=== PATIENT | female | born 1960 | race Caucasian/White ===

== ENCOUNTER 2019-09-11 10:07 | Outpatient (CLI) | payer OTHER ==
[~2019-09-11] VITALS: Ht 157.5 cm; Wt 78.3 kg
[2019-09-11 10:54] VITALS: BP 112/70
[2019-09-11] MEDS ORDERED: GLUC100016 PO (11:08)
[2019-09-11] MEDS ORDERED: CYCL10TA9 PO (11:08)
[2019-09-11] MEDS ORDERED: LISI1TAB8 PO (11:08)
[2019-09-11] MEDS ORDERED: PREG75CA PO (11:08)
[2019-09-11] MEDS ORDERED: OXYC-471 PO (11:08)
[2019-09-11] MEDS ORDERED: ATOR40TA70 PO (11:08)
[2019-09-11] MEDS ORDERED: PANC1CAP PO (11:08)
[2019-09-11] MEDS ORDERED: FAMO-144 PO (11:08)
[2019-09-11 11:30] LABS: BASOPHILS % (AUTO) 0 % (0-10); EOSINOPHILS # (AUTO) 0.3 10^3/uL (0.0-0.3); EOSINOPHILS % (AUTO) 3 % (0-10); HEMATOCRIT 41 % (35-52); HEMOGLOBIN 13.7 G/DL (11.5-16.0); LYMPHOCYTES # (AUTO) 2.9 X 10^3 (1.0-4.0); LYMPHOCYTES % (AUTO) 31 % (12-44); MEAN CORPUSCULAR HEMOGLOBIN 32 PG (25-34); MEAN CORPUSCULAR HGB CONC 34 G/DL (32-36); MEAN CORPUSCULAR VOLUME 96 FL (80-99); MEAN PLATELET VOLUME 10.4 FL (7.4-10.4); MONOCYTES # (AUTO) 0.6 X 10^3 (0.0-1.0); MONOCYTES % (AUTO) 6 % (0-12); NEUTROPHILS # (AUTO) 5.5 X 10^3 (1.8-7.8); NEUTROPHILS % (AUTO) 59 % (42-75); PLATELET COUNT 315 10^3/uL (130-400); RED CELL DISTRIBUTION WIDTH 13.8 % (10.0-14.5); WHITE BLOOD COUNT 9.3 10^3/uL (4.3-11.0)
[2019-09-11 11:40] LABS: BUN/CREATININE RATIO 20; CALCIUM 9.8 MG/DL (8.5-10.1); CARBON DIOXIDE 23 MMOL/L (21-32); CHLORIDE 106 MMOL/L (98-107); CREATININE SERUM 0.86 MG/DL (0.60-1.30); GFR ESTIMATED > 60; GLUCOSE 100 MG/DL (70-105); POTASSIUM 3.6 MMOL/L (3.6-5.0); SODIUM 140 MMOL/L (135-145)
== END 2019-09-11 10:50 | disposition home or self-care (01) ==
LOC: PREOP 10:07
PROVIDERS: ATTEND Orthopaedic Surgery
DX: Z01.812 Encounter for preprocedural laboratory examination (principal); M48.00 Spinal stenosis, site unspecified
CPT/HCPCS: 36415; 80048; 85025; 86850; 86900; 86901; 87081

== ENCOUNTER 2019-09-18 06:11 | Inpatient (IN) | payer OTHER ==
--- NOTE | 2019-09-11 14:57 | NUR ---
MEDICATION LIST WAS ENTERED BY PREOP. I CALLED [facility] IN [place] TO VERIFY PRESCRIPTIONS RECENTLY FILLED THERE. [facility] FILLED: 08-23-19 LISINOPRIL HCTZ 20-12.5MG 2 DAILY #60 08-23-19 LIPITOR 40MG DAILY #30 08-23-19 PERCOCET 5-325MG Q6H PRN #30 08-03-19 FLEXERIL 10MG TID PRN #30 07-03-19 LYRICA 75MG BID PRN #30 ALSO REPORTED OTC: PEPCID DAILY GLUCOSAMINE DAILY SUPER ENZYME DAILY I DID NOT FIND ANY DISCREPANCIES IN THE PRESCRIPTIONS MEDICATION SO I DID NOT CALL AND RE INTERVIEW THE PATIENT AT THIS TIME.
[~2019-09-18] VITALS: Ht 157 cm; Wt 78.3 kg
[2019-09-18] VITALS (12 sets, daily range): BP systolic 88–120; BP diastolic 48–82
[~2019-09-18 06:11] MED LIST: ATOR40TA70 PO; CYCL10TA9 PO; FAMO-144 PO; GLUC100016 PO; LISI1TAB8 PO; OXYC-471 PO; PANC1CAP PO; PREG75CA PO
[2019-09-18] MEDS ORDERED: ceFAZolin 2 GM IV Premixed 50 ML IV ONE (06:30)
[2019-09-18] MEDS ORDERED: ROCURONIUM 10 MG/ML 5 ML SYRINGE IV ONE ×2 (07:11→10:37)
[2019-09-18] MEDS ORDERED: MIDAZOLAM 2 MG/2 ML (VERSED) VIAL ONE (07:11)
[2019-09-18] MEDS ORDERED: LIDOCAINE PF 2% 5 ML (XYLOCAINE) VIAL ONE (07:11)
[2019-09-18] MEDS ORDERED: fentaNYL INJECTION 250 MCG/5 ML AMP ONE (07:12)
[2019-09-18] MEDS ORDERED: VANCOMYCIN 1000 MG/VIAL ONE (07:22)
[2019-09-18] MEDS ORDERED: NEO/POLY/BAC (NEOSPORIN) OINT 15 GM TUBE ONE (07:23)
[2019-09-18] MEDS ORDERED: BUP/EPI 0.5% 1:200,000 (SENSORCAINE) 30 ML VIAL ONE (07:23)
[2019-09-18] MEDS ORDERED: ceFAZolin 2 GM IV Premixed 50 ML ONE (07:29)
[2019-09-18] MEDS: LACTATED RINGERS 1,000 ML IV PRN ×5 (07:40→16:52)
[2019-09-18] MEDS ORDERED: BACITRACIN 100,000 UNIT/NS 1000 ML POUR BOTTLE IR ONE ×2 (07:45)
[2019-09-18] MEDS ORDERED: PHENYLEPHRINE 100 MCG/ML 10 ML (ANESTHESIA) SYR ONE (10:37)
[2019-09-18] MEDS ORDERED: GLYCOPYRROLATE 0.2 MG/ML (ROBINUL) 2 ML VIAL ONE (10:37)
[2019-09-18] MEDS ORDERED: SEVOFLURANE (ULTANE) 15 ML INHAL SOLN ONE ×4 (10:37→11:20)
[2019-09-18] MEDS ORDERED: NEOSTIGMINE 3 MG/3 ML VIAL ONE (10:37)
[2019-09-18] MEDS ORDERED: proPOfol 200 MG/20 ML (DIPRIVAN) VIAL IV ONE (10:45)
[2019-09-18] MEDS ORDERED: DEXAMETHASONE 10 MG/ML (DECADRON) 1 ML VIAL ONE (10:45)
[2019-09-18] MEDS ORDERED: HYDROmorphone 2 MG/ML VIAL (DILAUDID) IV ONE (11:45)
[2019-09-18] MEDS ORDERED: morphine INJ 10 MG/ML 1ML (SYR OR VIAL) IVP ONE (11:45)
[2019-09-18] MEDS ORDERED: ONDANSETRON 4 MG/2 ML (SDV) Z0FRAN IVP PRN (11:45)
[2019-09-18] MEDS ORDERED: morphine INJ 10 MG/ML 1ML (SYR OR VIAL) ONE (11:46)
[2019-09-18] MEDS ORDERED: SUCCINYLCHOLINE INJ 100 MG/5 ML SYR ONE (11:49)
[2019-09-18] MEDS ORDERED: BISACODYL 5 MG (DULCOLAX) TABLET PO PRN (12:15)
[2019-09-18] MEDS ORDERED: BISACODYL 10 MG SUPP (DULCOLAX) PR PRN (12:15)
[2019-09-18] MEDS ORDERED: METOCLOPRAMIDE INJ 10 MG/2 ML (REGLAN) IV PRN (12:15)
[2019-09-18] MEDS ORDERED: PROMETHAZINE 25 MG (PHENERGAN) TAB PO PRN (12:15)
[2019-09-18] MEDS ORDERED: ONDANSETRON 4 MG/2 ML (SDV) Z0FRAN IV PRN (12:15)
[2019-09-18] MEDS ORDERED: METOCLOPRAMIDE 10 MG (REGLAN) TAB PO PRN (12:15)
[2019-09-18] MEDS ORDERED: ACETAMINOPHEN 325 MG TABLET PO PRN (12:15)
[2019-09-18] MEDS: CYCLOBENZAPRINE 10 MG (FLEXERIL) TAB PO PRN (13:08)
--- NOTE | 2019-09-18 13:53 | Diagnostic Imaging Report ---
Indication: Back pain IMPRESSION: 75 seconds of fluoroscopy was used by Dr. Young in surgery during a spinal fusion procedure. 5 digital images were also obtained for alignment and localization purposes. Dictated by: Dictated on workstation # [id number]
[2019-09-18] MEDS: fentaNYL INJECTION 100 MCG/2 ML AMP IVP PRN ×3 (14:10→20:25)
[2019-09-18] MEDS: ceFAZolin INJECTION 1,000 MG in WATER (STERILE) FOR INJECTION 10 ML IV SCH (16:52)
--- NOTE | 2019-09-18 17:35 | OPERATIVE REPORT ---
DATE OF SERVICE: 09/18/2019 SURGEON: Cleveland Young DO UTILITIES EQUIPMENT REPAIRER: SAEID Ray This is a medically necessary procedure. Fish Machine Feeder was necessary for retraction of vital neurovascular structures. Without an hotel assistant general manager, the procedure would not be possible. PREOPERATIVE DIAGNOSES: 1. Lumbar herniated nucleus pulposus, left side L4-L5. 2. Lumbar spinal stenosis (bony, central, foraminal). 3. Burst fracture of T12. 4. Osteoporosis. POSTOPERATIVE DIAGNOSES: 1. Lumbar herniated nucleus pulposus, left side L4-L5. 2. Lumbar spinal stenosis (bony, central, foraminal). 3. Burst fracture of T12. 4. Osteoporosis. PROCEDURE PERFORMED: 1. T10-T11, L1-L2 posterior instrumentation. 2. T10-T11, T11-T12, T12-L1, L1-L2 posterior lumbar fusion. 3. Bilateral laminectomy with complete facetectomies T12-L1. 4. Use of human allograft for spine. 5. Use of local bone autograft. 6. Left L4-L5 hemilaminotomy. 7. Excision of HNP. COMPLICATIONS: None. SPECIMEN SENT: None. DRAINS PLACED: Subfascial Hemovac. ANESTHESIA: General endotracheal tube anesthesia with local anesthetic. ESTIMATED BLOOD LOSS: See anesthesia records. SPECIMEN SENT: None. HISTORY OF PRESENT ILLNESS: The patient is a very pleasant 58-year-old female who presented to me with severe vertebra plana deformity of T12. This had retropulsion with subsequent spinal stenosis and thoracic kyphosis at this level. She also had left-sided herniated nucleus pulposus at L4-L5. In addition to her extreme back pain associated with the fracture, she had radiating lower extremity pain. Based on these MRI findings, I did offer her surgery and we chose to address both issues under one anesthesia. She understood the risks and benefits. DESCRIPTION OF PROCEDURE: The patient was identified by name on wrist band in the preoperative holding area. Her operative site was signed, consent was signed. SCDs were placed. Neuromonitor was hooked up and antibiotics were started. She was taken to the operating room theater and placed under general endotracheal tube anesthesia and transferred to the operating room table in the prone position. She was prepped and draped in the usual sterile fashion. A formal timeout was conducted. At this point, I found our level at L4-L5. I made a midline incision from the spinous process of L4, spinous process of L5. I proceeded with a left-sided unilateral subperiosteal paraspinal approach exposing the L4-L5 level. I used the high speed bur and Kerrison rongeurs to perform a hemilaminotomy identified a broad based disk bulge. I performed an annulotomy and I removed as much of the disk bulges I could with further decompress the nerve root. I maintained hemostasis, irrigated the wound and closed utilizing 0 Vicryl followed by 3-0 Vicryl followed by running 3-0 subcuticular stitch. I then turned my attention to the burst fracture component of that operation. I made a midline skin incision extending from the spinous process of T10 to the spinous process of L2. I proceeded with bilateral subperiosteal paraspinal muscular approach exposing the posterior elements at these levels. Under AP and lateral x-ray, I placed pedicle screws using standard open pedicle screw technique, I placed bilaterally in the pedicles of T10-T11 and L1-L2. T12 was skipped due to the severe deformity at this level. Once the screws were in place, I obtained AP and lateral x-ray to ensure that the screws were in good position. I also used EMG neuro monitoring to further verify their positioning. At this point, I performed bilateral laminectomy with complete facetectomies for decompression at T12-L1. I was finished, there was no further compression due to the burst fracture. I obtained the appropriate length celia placed it on the left and the right through the tulips of all screws. I placed set screws and final tightened those set screws. At this point, I maintained hemostasis, irrigated the wound thoroughly and I packed a mixture of human allograft and local bone autograft in the left and right gutter to promote posterior spinal fusion from T10-T11, T11-T12, T12-L1, L1-L2. I placed a subfascial Hemovac drain and I closed the wound utilizing 0 Vicryl followed by 2-0 Vicryl followed by chidi for skin. We applied dressings to both wounds and placed the patient in the supine position and took her to PACU where she awoke without incident. She tolerated the procedure well. PLAN: At this time is to admit the patient for IV antibiotics, IV pain control and postoperative monitoring. I will have her out of bed on postop day #1 with the thoracolumbar brace on. I will have her wear that brace for 3 months due to her severe osteoporosis. Please note that the instrumentation utilized for this was [employer]. Job ID: [id number] DocumentID: [id number] Dictated Date: 09/18/2019 14:13:58 Operater Date: 09/18/2019 17:34:31 Dictated By: CLEVELAND YOUNG DO
[2019-09-18] MEDS: DOCUSATE SODIUM 100 MG (COLACE) CAP PO SCH (20:25)
[2019-09-18] MEDS: FAMOTIDINE 20 MG (PEPCID) TABLET PO SCH (20:26)
[2019-09-19] MEDS: ceFAZolin INJECTION 1,000 MG in WATER (STERILE) FOR INJECTION 10 ML IV SCH ×2 (00:12→09:16)
[2019-09-19 00:15] VITALS: BP 123/58
[2019-09-19] MEDS: oxyCODONE/APAP 5/325MG (PERCOCET 5) TABLET PO PRN ×4 (00:21→20:40)
[2019-09-19] MEDS: CYCLOBENZAPRINE 10 MG (FLEXERIL) TAB PO PRN ×3 (00:22→20:40)
[2019-09-19 04:00] VITALS: BP 117/60
[2019-09-19] MEDS: MULTIVIT W/MINERALS TAB (THERAGRAN M) PO SCH (05:40)
[2019-09-19] MEDS: fentaNYL INJECTION 100 MCG/2 ML AMP IVP PRN ×2 (05:58→15:00)
--- NOTE | 2019-09-19 07:03 | Anesthesia-General Post-Op ---
General Patient Condition Mental Status/LOC: Same as Preop Cardiovascular: Satisfactory Nausea/Vomiting: Absent Respiratory: Satisfactory Pain: Controlled Complications: Absent Post Op Complications Complications None Follow Up Care/Instructions Patient Instructions None needed. Anesthesia/Patient Condition Patient Condition Patient is doing well, no complaints, stable vital signs, no apparent adverse anesthesia problems. No complications reported per nursing. D/C home per [facility] Criteria: Yes SHILOH CHINO CRNA Sep 19, 2019 07:03
[2019-09-19 07:04] LABS: MEAN PLATELET VOLUME 10.8 FL (7.4-10.4); RED CELL DISTRIBUTION WIDTH 13.2 % (10.0-14.5); WHITE BLOOD COUNT 15.2 10^3/uL (4.3-11.0)
[2019-09-19 07:30] LABS: ALANINE AMINOTRANSFERASE 15 U/L (0-55); ALBUMIN 3.3 GM/DL (3.2-4.5); ALKALINE PHOSPHATASE 46 U/L (40-136); BILIRUBIN,TOTAL 0.4 MG/DL (0.1-1.0); BUN/CREATININE RATIO 14; CALCIUM 8.3 MG/DL (8.5-10.1); CARBON DIOXIDE 22 MMOL/L (21-32); CHLORIDE 106 MMOL/L (98-107); CREATININE SERUM 0.71 MG/DL (0.60-1.30); GFR ESTIMATED > 60; GLUCOSE 114 MG/DL (70-105); POTASSIUM 3.6 MMOL/L (3.6-5.0); SODIUM 139 MMOL/L (135-145); TOTAL PROTEIN 5.2 GM/DL (6.4-8.2)
[2019-09-19 08:00] VITALS: BP 120/59
[2019-09-19] MEDS ORDERED: FAMOTIDINE 10 MG PO SCH (09:00)
[2019-09-19] MEDS: DOCUSATE SODIUM 100 MG (COLACE) CAP PO SCH ×2 (09:15→20:40)
[2019-09-19] MEDS: FAMOTIDINE 20 MG (PEPCID) TABLET PO SCH ×2 (09:15→20:40)
[2019-09-19] MEDS: HYDROCHLOROTHIAZIDE 25 MG (HCTZ) TAB PO SCH (09:15)
[2019-09-19] MEDS: lisINopril 40 MG (PRINIVIL) TABLET PO SCH (09:15)
--- NOTE | 2019-09-19 09:36 | Occupational Therapy Eval ---
OT Evaluation-General/PLF Medical Diagnosis Admission Date Sep 18, 2019 at 06:11 Medical Diagnosis: T10-T12, L1-L2 post. Lumbar Fusion, B laminectomy T12-L1 Onset Date: Sep 18, 2019 Therapy Diagnosis Therapy Diagnosis: impaired ADLs and functional mobility Precautions Precautions/Isolations: Fall Prevention, Standard Precautions Safety Interventions: None Referral Physician: Ritika Referral Reason: Activity Tolerance, Self Care, Evaluation/Treatment, Strengthening/ROM Medical History Additional Medical History Hx of torn rotator cuff RUE, Current History Surgery 09/18/19, T10-T12, L1-L2 post. lumbar fusion, B laminectomy with complete facetectomies T12-L1 Reviewed History: Yes Social History Home: Single Level Current Living Status: Significant Other ( - milk truck driver) Entry Into Home: Stairs Without Railing Steps Into Home: 2 Pt reports she lives at home with her who is a milk truck driver. Pt's daughter is going to stay with pt at home after d/c. ADL-Prior Level of Function SCALE: Activities may be completed with or without assistive devices. 9-Ulhfnapler-dhckozq completes the activity by him/herself with no assistance from a helper. 5-Set-up or Clean-up Assistance-helper sets up or cleans up; patient completes activity. [place] assists only prior to or following the activity. 4-Supervision or Touching Assistance-helper provides verbal cues and/or touching/steadying and/or contact guard assistance as patient completes activity. Assistance may be provided throughout the activity or intermittently. 3-Partial/Moderate Assistance-helper does LESS THAN HALF the effort. [place] lifts, holds or supports trunk or limbs, but provides less than half the effort. 2-Substantial/Maximal Assistance-helper does MORE THAN HALF the effort. [place] lifts or holds trunk or limbs and provides more than half the effort. 1-Jdpsuezvv-wbppcd does ALL the effort. Patient does none of the effort to complete the activity. Or, the assistance of 2 or more helpers is required for the patient to complete the activity. If activity was not attempted, code reason: 7-Patient Refused. 9-Not Applicable-not attempted and the patient did not perform the activity before the current illness, exacerbation or injury. 10-Not Attempted due to Environmental Limitations-(lack of equipment, weather restraints, etc.). 88-Not Attempted due to Medical Conditions or Safety Concerns. ADL PLOF Comments Pt reports independence with all ADLs and IADLs prior to hospitalization. Self Care: Independent Functional Cognition: Independent DME/Equipment: Bath Bench (built in), Grab Bars (suction cup grab bars), Shower (walk in) DME/Equipment Comments pt denied using DME prior to hospitalization. Drive Self: Yes OT Current Status Subjective Pt laying in bed with nursing present giving pt meds at start of session. Pt agreeable to OT eval. Pain Numeric Pain Scale: 10-Worst Possible Pain Location Body Site: Back Mental Status/Objective Patient Orientation: Person, Place, Time, Situation Attachments: Other-See Comments (back brace) Current Glasses/Contacts: Yes Hearing Aids: No Dentures/Partials: Yes (partial) Upper Extremity ROM WFL BUE, pt reports increased pain with ROM RUE. Pt states she has previous rotator cuff tears in RUE. Upper Extremity Coordination WFL thumb opposition to each finger Upper Extremity Sensation Pt reported tingling/numbness in BUE fingertips yesterday, states it has now resolved. Denies any other changes in sensation BUE. Upper Extremity Strength 3+/5 MMT BUE ADL-Treatment Eating (QC): 6 (Pt's breakfast tray on bedside table during session. Pt reports no difficulties opening breakfast containers and eating food.) Lower Body Dressing (QC): 2 (Pt reports she has difficulty putting on underwear since her surgery, stating her daughter has had to assist.) On/Off Footwear (QC): 1 (Pt reports she has difficulty putting on socks since her surgery, stating her daughter has had to assist secondary to pain and spinal precautions.) Other Treatments Pt laying in bed throughout session. Provided info about PLOF and home set up. Pt stated she was in a lot of pain and pleasantly declined sitting EOB at this time. Nurse and pt reported PT has already been in this AM and pt has been up walking. Pt reported information about present level of function but pleasantly declined attempting tasks. Post OT session, pt laying in bed, call light in reach and all needs met. Education OT Patient Education: Correct positioning, Energy conservation, Modified ADL techniques, Progress toward Goal/Update tx plan, Purpose of tx/functional activities Teaching Recipient: Patient Teaching Methods: Demonstration Response to Teaching: Verbalize Understanding OT Short Term Goals Short Term Goals Time Frame: Sep 29, 2019 Bathing(FIM): 3 Upper Body Dressing(FIM): 3 Lower Body Dressing(FIM): 3 Toileting(FIM): 3 Toilet/Commode Transfer(FIM): 3 1=Demonstrate adherence to instructed precautions during ADL tasks. 2=Patient will verbalize/demonstrate understanding of assistive devices/mary fications for ADL. 3=Patient will improve strength/tolerance for activity to enable patient to perform ADL's. OT Claim Adjuster Goals Nursing Home Goals Time Frame: Oct 06, 2019 Oral Hygiene (QC): 6 Shower/Bathe Self (QC): 5 Upper Body Dressing (QC): 6 Lower Body Dressing (QC): 6 On/Off Footwear (QC): 6 Toileting Hygiene (QC): 6 Toilet/Commode Transfer (QC): 6 Additional Goals: 1-Demonstrate ADL Tasks, 2-Verbalize Understanding, 3- ImproveStrength/Santos 1=Demonstrate adherence to instructed precautions during ADL tasks. 2=Patient will verbalize/demonstrate understanding of assistive devices/modifications for ADL. 3=Patient will improve strength/tolerance for activity to enable patient to perform ADL's. OT Education/Plan Problem List/Assessment Assessment: Decreased Activ Tolerance, Decreased UE Strength, Impaired Funct Balance, Impaired I ADL's, Impaired Self-Care Skills Pt would benefit from skilled OT services in order to increase independence in ADLs and functional activities with education on AE and ADL modifications. Discharge Recommendations Plan/Recommendations: Continue POC Therapy Discharge Recommendati: 24 Hour Supervision Barriers to Progress Pain Treatment Plan/Plan of Care Treatment,Training & Education: Yes Patient would benefit from OT for education, treatment and training to promote independence in ADL's, mobility, safety and/or upper extremity function for ADL's. Plan of Care: ADL Retraining, Functional Mobility, UE Funct Exercise/Act Treatment Duration: Oct 06, 2019 Frequency: 5 times per week Estimated Hrs Per Day: .25 hour per day Agreement: Yes Rehab Potential: Good Time/GCodes Start Time: 09:15 Stop Time: 09:26 Total Time Billed (hr/min): 11 Billed Treatment Time 1, EVL x11min DENIZ FINNEY OT Sep 19, 2019 09:36
--- NOTE | 2019-09-19 10:04 | NUR ---
prior to a.m. medications b/p was 120/59 pulse was 105
--- NOTE | 2019-09-19 10:39 | Physical Therapy Evaluation ---
PT Evaluation-General Medical Diagnosis Admission Date Sep 18, 2019 at 06:11 Medical Diagnosis: T10-T12, L1-L2 post. Lumbar Fusion, B laminectomy T12-L1 Onset Date: Sep 18, 2019 Therapy Diagnosis Therapy Diagnosis: generalized weakness/debility Precautions Precautions/Isolations: Fall Prevention, Standard Precautions Weight Bear Status Right Lower Extremity: Right Full Weight Bearing Left Lower Extremity: Left Full Weight Bearing Referral Physician: Hector Reason for Referral: Evaluation/Treatment Medical History Current History s/p T10-T12, L1-L2 post. 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 0-Lppyrxvybz-dfxkxlf completes the activity by him/herself with no assistance from a helper. 5-Set-up or Clean-up Assistance-helper sets up or cleans up; patient completes activity. [place] assists only prior to or following the activity. 4-Supervision or Touching Assistance-helper provides verbal cues and/or touching/steadying and/or contact guard assistance as patient completes activity. Assistance may be provided throughout the activity or intermittently. 3-Partial/Moderate Assistance-helper does LESS THAN HALF the effort. [place] lifts, holds or supports trunk or limbs, but provides less than half the effort. 2-Substantial/Maximal Assistance-helper does MORE THAN HALF the effort. [place] lifts or holds trunk or limbs and provides more than half the effort. 8-Iivyrvlbz-vfsbtx does ALL the effort. Patient does none of the effort to complete the activity. Or, the assistance of 2 or more helpers is required for the patient to complete the activity. If activity was not attempted, code reason: 7-Patient Refused. 9-Not Applicable-not attempted and the patient did not perform the activity before the current illness, exacerbation or injury. 10-Not Attempted due to Environmental Limitations-(lack of equipment, weather restraints, etc.). 88-Not Attempted due to Medical Conditions or Safety Concerns. Bed Mobility: 6 Transfers (B,C,W/C): 6 Gait: 6 Stairs: 6 Indoor Mobility (Ambulation): Independent Stairs: Independent PT Evaluation-Current Subjective Patient agrees to PT. PT instructed patient on having to order TLSO which has been done today per nursing staff. Pain Numeric Pain Scale: 10-Worst Possible Pain Location: Medial, Left, Upper Location Body Site: Back Objective Patient Orientation: Normal For Age Problem Solving: Fair Attachments: Drains, Joseph Catheter, IV ROM/Strength ROM Lower Extremities bilateral LE WFL Strength Lower Extremities left LE 3+/5 grossly/right LE 4/5 grossly Integumentary/Posture Integumentary refer to nursing notes Bladder Incontinence: Joseph Cath Posture WFL Neuromuscular (Tone, Coordination, Reflexes) grossly intact Sensory Vision: Functional Hearing: Functional Sensation Right Lower Extremit: Intact Sensation Left Lower Extremity: Intact Transfers Roll Left to Right (QC): 3 Sit to Lying (QC): 3 Lying to Sitting/Side of Bed(Q: 3 Sit to Stand (QC): 3 Chair/Hnq-az-Xoipy Xfer(QC): 3 Gait Does the Patient Walk?: Yes Mode of Locomotion: Walk Anticipated Mode of Locomotion: Walk Distance (FIM): 3=150 ft Walk 10 feet (QC): 4 Walk 50 ft with 2 Turns(QC): 4 Walk 150 ft (QC): 4 Distance: 200' Gait Assistive Device: FWW Comments/Gait Description slow, antalgic with FWW and LSO in place Balance Sitting Static: Normal Sitting Dynamic: Normal Standing Static: Fair Standing Dynamic: Fair Assessment/Needs 58 y.o. female, will benefit from skilled PT to address functional strength and mobility to return to home and independent PLOF with all gross motor skills. TLSO has been ordered per nursing. LSO to be utilized until arrival. Rehab Potential: Fair PT Fpc Goals Knock Up Assembler Goals PT Knock Up Assembler Goals Time Frame: Sep 30, 2019 Sit to Lying (QC): 6 Lying-Sitting on Side/Bed(QC): 6 Sit to Stand (QC): 6 Roll Left to Right (QC): 6 Chair/Juj-ml-Bgoao Xfer(QC): 6 Does the Patient Walk: Yes Distance: 250' Walk 10 feet (QC): 6 Walk 10ft-Uneven Surface(QC): 6 Walk 50ft with 2 Turns (QC): 6 Walk 150 ft (QC): 6 Gait Assistive Device: FWW # of Steps: 4 1 Step (curb) (QC): 5 4 Steps (QC): 5 12 Steps (QC): 88 PT Plan Problem List Problem List: Activity Tolerance, Other (pain control) Treatment/Plan Treatment Plan: Continue Plan of Care Treatment Plan: Bed Mobility, Education, Functional Activity Santos, Functional Strength, Gait, Safety, Therapeutic Exercise, Transfers Treatment Duration: Sep 30, 2019 Frequency: 11 times per week Estimated Hrs Per Day: .5 hour per day Patient and/or Family Agrees t: Yes Time/GCodes Time In: 809 Time Out: 829 Total Billed Treatment Time: 20 Total Billed Treatment 1 visit [facility] 20 min MARLEE WILLIAM PT Sep 19, 2019 10:39
--- NOTE | 2019-09-19 11:07 | Consultation - Hospitalist ---
[facility] 09/19/19 1107: HPI History of Present Illness: HPI/Chief Complaint Pt is a 58 y.o white female w/ PMH of HTN, osteoporosis, Tobacco use, and dyslipidemia here post-op for repair back surgery for management of IV ABX and pain control. Pt had an episode of fall 2/2 slipping on wet ground at work back in May 30, 2019 which resulted in burst fracture of T12 at which time diagnosis of L4-L5 herniated nucleus pulposus on the left side, Lumbar spinal stenosis (bony, central, foraminal) and Osteoporosis were established. Pt was not able to schedule surgery as she lost her insurance shortly after the fall. At this time, pt reports 10/10 pain and muscle spasms on her left side and throughout her left lower back; she describes the pain as being similar to a "Charley-horse". She reports she has been very nauseated 2/2 pain so she has not been able to each much besides water. She says the muscle relaxants and pain meds she has received so far have not been able to control her pain. She has a ordonez catheter in place and has had normal urine out put; has not had a BM today. Has also had abd distension. She denies vomiting, diarrhea, SOB, CP, palpitations, LE swelling, or headache today. Pt has a hx of [place], which she used to control with NSAIDs until recently; however she states has not been taking as much NSAIDs as recommended by her doctor for her osteoporosis (used to take ibuprofen at least TID). Pt is a long time smoker, 1 pack/day since she was 20 y.o. She has tried Chantix, but says she experienced "Bad, crazy dreams" while she was on it. Pt has hx of fibromyalgia for which she take pregabalin PRN. Date Seen 09/19/19 Attending Physician Cleveland Young DO PCP No,Local Physician Referring Physician Date of Admission Sep 18, 2019 at 06:11 Home Medications & Allergies Home Medications Reviewed patient Home Medication Reconciliation performed by pharmacy medication reconciliations food technician and/or nursing. Patients Allergies have been reviewed. Allergies Allergies Coded Allergies No Known Drug Allergies (Zpynkgnhix97/14/19) Past Ehjpabz-Hpllaq-Rcdkfg Hx Patient Social History Marrital Status: Employed/Student: unemployed Alcohol Use: Denies Use Recreational Drug Use: No Smoking Status: Current Everyday Smoker Cigaretts per day: 1 Type Used: Cigarettes Physical Abuse Screen: No Sexual Abuse: No Recent Foreign Travel: No Contact w/other who traveled: No Recent Hopitalizations: No Recent Infectious Disease Expo: No Immunizations Up To Date Date of Pneumonia Vaccine: Sep 11, 2018 Date of Influenza Vaccine: Sep 04, 2019 Seasonal Allergies Seasonal Allergies: Yes Past Medical History Cardiac: High Cholesterol, Hypertension Neurological: Headaches /Migraines Menopausal Gastrointestinal: Gastroesophageal Reflux Musculoskeletal: Osteoporosis, Arthritis, Back Injury, Chronic Back Pain HEENT: Cataract History of Blood Disorders: Yes (low iron) Family History Alcoholism 19 FATHER Cervical cancer 19 MOTHER Hypertension 19 FATHER G8 BROTHER Myocardial infarction 19 FATHER G8 BROTHER Review of Systems Constitutional: No chills, No diaphoresis, No dizziness, No fever Respiratory: No cough, No dyspnea on exertion, No orthopnea, No short of breath Cardiovascular: No chest pain, No edema, No palpitations Gastrointestinal: abdominal pain (LUQ), constipation; No diarrhea; nausea; No vomiting Genitourinary: No decreased output, No dysuria, No frequency : No Musculoskeletal: back pain; No joint swelling; muscle cramps, neck pain Skin: No change in color, No dryness Psychiatric/Neurological: Denies Anxiety, Denies Depressed, Denies Headache Physical Exam Physical Exam Vital Signs Vital Signs - First Documented Capillary Refill : Less Than 3 Seconds Height, Weight, BMI Height: '" Weight: lbs. oz. kg; 31.76 BMI Method: General Appearance: WD/WN, Mild Distress (2/2 pain), Obese, Other (pt is a white female, pleasant, cooperative, appears her age and well cared for, tearful at times 2/2 pain) Eyes: Bilateral Eye Normal Inspection, Bilateral Eye PERRL HEENT: PERRL/EOMI, Normal ENT Inspection Neck: Full Range of Motion, Normal Inspection, Supple Respiratory: Chest Non Tender, Lungs Clear, Normal Breath Sounds, No Accessory Muscle Use, No Respiratory Distress; No Crackles, No Wheezing Cardiovascular: Regular Rate, Rhythm, No Edema, No Gallop, No JVD, No Murmur, Normal Peripheral Pulses Gastrointestinal: Normal Bowel Sounds, No Organomegaly, No Pulsatile Mass, Distended; No Guarding; Tenderness (LUQ) Back: No CVA Tenderness, Decreased Range of Motion (post-op), Vertebral Tenderness Extremity: Normal Capillary Refill, Normal Inspection; No Non Tender, No No Calf Tenderness, No No Pedal Edema Neurologic/Psychiatric: Alert, Oriented x3 Skin: Normal Color, Warm/Dry Lymphatic: No Adenopathy Results Results/Procedures Labs Laboratory Tests 09/19/19 05:35 Patient resulted labs reviewed. Assessment/Plan Assessment and Plan Assess & Plan/Chief Complaint Post-Op Back surgery -Left lumbar 4-5 hemilaminectomy with thoracic 10-11, -Lumbar 1-2 post segmental instrumeneted fusion w. thoracic 11-12 facetectomy -Pain managed by Primary Attending HTN -Controlled on Lisinopril-HTZ, continued Dyslipidemia -Controlled on Atorvastatin, continued Normocytic Anemia Post-Op -Monitor Hgb DVT prophylaxis when cleared by surgery Hx of Fibromyalgia -On pregabalin PRN Hx of Osteoporosis Clinical Quality Measures DVT/VTE Risk/Contraindication: Risk Factor Score Per Nursin RFS Level Per Nursing on Admit: 2=Moderate LUCIANA ALEJO MD 09/20/192049: Past Lrimpqr-Thmyfk-Tjeesi Hx Past Med/Social Hx: Reviewed Nursing Past Med/Soc Hx Family History Reviewed Nursing Family Hx Alcoholism 19 FATHER Cervical cancer 19 MOTHER Hypertension 19 FATHER G8 BROTHER Myocardial infarction 19 FATHER G8 BROTHER Diagnosis/Problems Diagnosis/Problems (1) stenosis Status: Chronic (2) Essential (primary) hypertension Status: Chronic (3) Osteoporosis Status: Chronic Qualifiers: Osteoporosis type: unspecified Presence of current pathological fracture: without current pathological fracture Qualified Codes: M81.0 - Age-related os teoporosis without current pathological fracture (4) Dyslipidemia Status: Chronic (5) Normocytic anemia Status: Acute (6) Prophylactic measure Status: Acute Supervisory-Addendum Brief Verification & Attestation Participated in pt care: history, MDM, physical Personally performed: exam, history, MDM, supervision of care Care discussed with: Medical Student Procedures: n/a Results interpretation: Verified all documentation Verification and Attestation of Medical Student E/M Service A medical student performed and documented this service in my presence. I reviewed and verified all information documented by the medical student and made modifications to such information, when appropriate. I personally performed the physical exam and medical decision making. Luciana Alejo, Sep 20, 2019,20:[address] [facility] Sep 19, 2019 11:07 LUCIANA ALEJO MD Sep 20, 2019 20:50
[2019-09-19 12:00] VITALS: BP 91/51
--- NOTE | 2019-09-19 12:48 | Diagnostic Imaging Report ---
INDICATION: Immediate postoperative imaging from posterior instrumented stabilization of T12 burst fracture. TECHNIQUE: Three views of the lumbar spine were obtained. FINDINGS: Paired transpedicular screws and vertical spanning rods from T10 through L2, sparing T12. T12 has severe burst fracture deformity with retropulsed ossific fragments. Fixation hardware is in good alignment and position. Normal lordosis of the lumbar spine. Skin chiid are present. IMPRESSION: 1. Posterior instrumented stabilization of T12 burst fracture. Dictated by: Dictated on workstation # [id number]
[2019-09-19] MEDS: PREGABALIN 75 MG (LYRICA) CAP PO PRN (15:00)
--- NOTE | 2019-09-19 15:05 | Physical Therapy Daily Note ---
PT Daily Note-Current Subjective Patient and family agree to PT at this time. Patient is in significant pain but wants to get up and ambulate because she thinks it will help. Pain Numeric Pain Scale: 10-Worst Possible Pain Location: Lower Location Body Site: Back Pain Description: Acute Comment: RN issuing pain medication Mental Status Patient Orientation: Person, Place, Time, Situation Attachments: Drains, Joseph Catheter Transfers SCALE: Activities may be completed with or without assistive devices. 3-Zwosviofji-eidujwx completes the activity by him/herself with no assistance from a helper. 5-Set-up or Clean-up Assistance-helper sets up or cleans up; patient completes activity. [place] assists only prior to or following the activity. 4-Supervision or Touching Assistance-helper provides verbal cues and/or touching/steadying and/or contact guard assistance as patient completes activity. Assistance may be provided throughout the activity or intermittently. 3-Partial/Moderate Assistance-helper does LESS THAN HALF the effort. [place] lifts, holds or supports trunk or limbs, but provides less than half the effort. 2-Substantial/Maximal Assistance-helper does MORE THAN HALF the effort. [place] lifts or holds trunk or limbs and provides more than half the effort. 6-Boazidomt-urjqty does ALL the effort. Patient does none of the effort to complete the activity. Or, the assistance of 2 or more helpers is required for the patient to complete the activity. If activity was not attempted, code reason: 7-Patient Refused. 9-Not Applicable-not attempted and the patient did not perform the activity before the current illness, exacerbation or injury. 10-Not Attempted due to Environmental Limitations-(lack of equipment, weather restraints, etc.). 88-Not Attempted due to Medical Conditions or Safety Concerns. Roll Left to Right (QC): 4 Sit to Lying (QC): 5 Sit to Stand (QC): 5 Weight Bearing Right Lower Extremity: Right Full Weight Bearing Left Lower Extremity: Left Full Weight Bearing Gait Training Does the Patient Walk?: Yes Distance: 200' Walk 10 feet (QC): 5 Walk 50 ft with 2 Turns(QC): 5 Walk 150 ft (QC): 5 Gait Assistive Device: FWW Step through pattern, difficulty with L hip pain during ambulation Assessment Patient required assistance to sit to EOB from supine with HOB elevated. Pain increased with position change and ambulation and RN was notified of patient's severe pain. Patient returned to bed with elevated HOB and ice pack on L hip to relieve muscle spasm. PT Hot Cell Technician Goals Hot Cell Technician Goals PT Hot Cell Technician Goals Time Frame: Sep 30, 2019 Sit to Lying (QC): 6 Lying-Sitting on Side/Bed(QC): 6 Sit to Stand (QC): 6 Roll Left to Right (QC): 6 Chair/Bnt-xn-Aayvi Xfer(QC): 6 Does the Patient Walk: Yes Distance: 250' Walk 10 feet (QC): 6 Walk 10ft-Uneven Surface(QC): 6 Walk 50ft with 2 Turns (QC): 6 Walk 150 ft (QC): 6 Gait Assistive Device: FWW # of Steps: 4 1 Step (curb) (QC): 5 4 Steps (QC): 5 12 Steps (QC): 88 PT Plan Treatment/Plan Treatment Plan: Continue Plan of Care Treatment Plan: Bed Mobility, Education, Functional Activity Santos, Functional Strength, Gait, Safety, Therapeutic Exercise, Transfers Treatment Duration: Sep 30, 2019 Frequency: 11 times per week Estimated Hrs Per Day: .5 hour per day Patient and/or Family Agrees t: Yes Time/GCodes Time In: 1442 Time Out: 1454 Total Billed Treatment Time: 12 Total Billed Treatment 1 visit FA 12min MARLEE WILLIAM PT Sep 19, 2019 15:05
--- NOTE | 2019-09-19 15:32 | NUR ---
Pastoral care visit.
[2019-09-19 16:00] VITALS: BP 94/58
--- NOTE | 2019-09-19 16:06 | Progress Note ---
Subjective Date Seen by a Provider: Sep 19, 2019 Time Seen by a Provider: 16:03 Subjective/Events-last exam POD #1 s/p thoracolumbar fusion and decompression. Doinng well, c/o back and adbdominal pain. Reports + flatus, -DM, no nausea or emesis. Has been OOB with PT. TLSO ordrered. Review of Systems General: No Chills Cardiovascular: No: Chest Pain Gastrointestinal: Abdominal Pain; No: Nausea, Vomiting Musculoskeletal: back pain Neurological: No: Weakness, Confusion Objective Exam Vital Signs Date Time Temp Pulse Resp B/P (MAP) Pulse Ox O2 Delivery O2 Flow Rate FiO2 09/19/19 12:00 36.4 97 18 91/51 (64) 93 Room Air 09/19/19 12:00 36.4 97 18 91/51 (64) 93 09/19/19 09:00 95 Nasal Cannula 3.00 09/19/19 08:00 37.0 105 20 120/59 (79) 95 Nasal Cannula 3.00 09/19/19 04:00 37.1 102 18 117/60 (79) 95 Nasal Cannula 3.00 09/19/19 00:15 37.4 98 20 123/58 (79) 96 Nasal Cannula 3.00 09/18/19 21:00 Nasal Cannula 2.00 09/18/19 19:45 36.9 95 16 105/68 (80) 98 Nasal Cannula 3.00 I & O 09/19/19 07:00 Intake Total 5360 ml Output Total 2560 ml Balance 2800 ml Capillary Refill : Less Than 3 Seconds General Appearance: No Apparent Distress Respiratory: No Accessory Muscle Use, No Respiratory Distress Cardiovascular: No JVD Extremity: No Calf Tenderness Neurologic/Psychiatric: Alert, Oriented x3, No Motor/Sensory Deficits Skin: Normal Color, Warm/Dry Results Lab Laboratory Tests 09/19/19 05:35: White Blood Count 15.2H, Red Blood Count 2.81L, Hemoglobin 9.0L, Hematocrit 27L, Mean Corpuscular Volume 97, Mean Corpuscular Hemoglobin 32, Mean Corpuscular Hemoglobin Concent 33, Red Cell Distribution Width 13.2, Platelet Count 264, Mean Platelet Volume 10.8H, Sodium Level 139, Potassium Level 3.6, Chloride Level 106, Carbon Dioxide Level 22, Anion Gap 11, Blood Urea Nitrogen 10, Creatinine 0.71, Estimat Glomerular Filtration Rate > 60, BUN/Creatinine Ratio 14, Glucose Level 114H, Calcium Level 8.3L, Corrected Calcium 8.9, Total Bilirubin 0.4, Aspartate Amino Transf (AST/SGOT) 23, Alanine Aminotransferase (ALT/SGPT) 15, Alkaline Phosphatase 46, Total Protein 5.2L, Albumin 3.3 Assessment/Plan Assessment/Plan Assess & Plan/Chief Complaint assessment pod #1 s/p thoracolumbar decompression and fusion plan pain control brace when oob scd for dvt prophylaxis Dr mcdonald has been consulted and we appriciate her assistance with care anticipate dismissal on POD #2 or 3 Clinical Quality Measures DVT/VTE Risk/Contraindication: Risk Factor Score Per Nursin RFS Level Per Nursing on Admit: 2=Moderate EMMY HEATH Sep 19, 2019 16:06
[2019-09-19 19:59] VITALS: BP 95/60
[2019-09-20] VITALS: BP 93/56
[2019-09-20] MEDS: oxyCODONE/APAP 5/325MG (PERCOCET 5) TABLET PO PRN ×3 (02:37→23:55)
[2019-09-20 03:15] VITALS: BP 95/54
[2019-09-20] MEDS ORDERED: OXYC-471 PO (05:34)
--- NOTE | 2019-09-20 05:37 | Progress Note ---
Subjective Date Seen by a Provider: Sep 20, 2019 Time Seen by a Provider: 05:37 Subjective/Events-last exam POD #2 s/p thoracolumbar fusion. Resting comfortably in bed, c/o back pain. Drain has significant output, will check H/H today. No new symptoms to report. Review of Systems General: No Chills HEENT: No Head Aches Gastrointestinal: No: Nausea, Vomiting Genitourinary: No Dysuria Musculoskeletal: back pain Neurological: No: Weakness, Change in speech, Confusion Objective Exam Vital Signs Date Time Temp Pulse Resp B/P (MAP) Pulse Ox O2 Delivery O2 Flow Rate FiO2 09/20/19 03:15 36.6 102 16 95/54 (68) 95 Room Air 09/20/19 00:00 36.2 103 20 93/56 (68) 95 Room Air 09/19/19 20:40 Room Air 09/19/19 19:59 37.1 94 16 95/60 (72) 94 Room Air 09/19/19 16:00 36.2 97 18 94/58 (70) 93 Room Air 09/19/19 12:00 36.4 97 18 91/51 (64) 93 Room Air 09/19/19 12:00 36.4 97 18 91/51 (64) 93 09/19/19 09:00 95 Nasal Cannula 3.00 09/19/19 08:00 37.0 105 20 120/59 (79) 95 Nasal Cannula 3.00 I & O 09/20/19 07:00 Intake Total 2070 ml Output Total 1625 ml Balance 445 ml Capillary Refill : Less Than 3 Seconds General Appearance: No Apparent Distress Respiratory: No Accessory Muscle Use, No Respiratory Distress Gastrointestinal: non tender, soft Extremity: Non Tender, No Calf Tenderness, No Pedal Edema Neurologic/Psychiatric: Alert, Oriented x3, No Motor/Sensory Deficits Assessment/Plan Assessment/Plan Assess & Plan/Chief Complaint assessment pod #2 s/p thoracolumbar decompression and fusion plan check h/h pain control brace when oob scd for dvt prophylaxis Dr mcdonald has been consulted and we appriciate her assistance with care anticipate dismissal on later today or tomorrow pending drain output and home health status Clinical Quality Measures DVT/VTE Risk/Contraindication: Risk Factor Score Per Nursin RFS Level Per Nursing on Admit: 2=Moderate EMMY HEATH Sep 20, 2019 05:37
[2019-09-20] MEDS: MULTIVIT W/MINERALS TAB (THERAGRAN M) PO SCH (06:59)
[2019-09-20 08:00] VITALS: BP 99/54
[2019-09-20] MEDS: lisINopril 40 MG (PRINIVIL) TABLET PO SCH (08:18)
[2019-09-20] MEDS: FAMOTIDINE 20 MG (PEPCID) TABLET PO SCH ×2 (08:18→20:55)
[2019-09-20] MEDS: HYDROCHLOROTHIAZIDE 25 MG (HCTZ) TAB PO SCH (08:18)
[2019-09-20] MEDS: DOCUSATE SODIUM 100 MG (COLACE) CAP PO SCH ×2 (08:18→20:55)
--- NOTE | 2019-09-20 08:59 | Physical Therapy Daily Note ---
PT Daily Note-Current Subjective Pt in bed pre-tx with RN present. Pt agrees to PT this morning. Pt reports pain is 10/10 in the low back and left hip but pain feels better than yesterday. Nurse gives her pain meds during tx. Appearance Pt in recliner with feet down post-tx. Pt with aspen back brace in place, nurse call light, room phone, and tray table in reach with all needs met at this time. Mental Status Patient Orientation: Person, Place, Situation Attachments: Drains, IV [place] back brace. Transfers SCALE: Activities may be completed with or without assistive devices. 0-Xtuzmcvyrf-ywdensg completes the activity by him/herself with no assistance from a helper. 5-Set-up or Clean-up Assistance-helper sets up or cleans up; patient completes activity. [place] assists only prior to or following the activity. 4-Supervision or Touching Assistance-helper provides verbal cues and/or touching/steadying and/or contact guard assistance as patient completes activity. Assistance may be provided throughout the activity or intermittently. 3-Partial/Moderate Assistance-helper does LESS THAN HALF the effort. [place] lif ts, holds or supports trunk or limbs, but provides less than half the effort. 2-Substantial/Maximal Assistance-helper does MORE THAN HALF the effort. [place] lifts or holds trunk or limbs and provides more than half the effort. 7-Gkiezhlpj-prsrwf does ALL the effort. Patient does none of the effort to complete the activity. Or, the assistance of 2 or more helpers is required for the patient to complete the activity. If activity was not attempted, code reason: 7-Patient Refused. 9-Not Applicable-not attempted and the patient did not perform the activity before the current illness, exacerbation or injury. 10-Not Attempted due to Environmental Limitations-(lack of equipment, weather restraints, etc.). 88-Not Attempted due to Medical Conditions or Safety Concerns. Roll Left to Right (QC): 3 (ModAx1 for log roll) Sit to Stand (QC): 4 (SBA) Pt is impulsive and starts to move and does not use hands on bed to stand up. pt pulls up on PT to sit up instead of pushing up from the bed on log roll. Weight Bearing Right Lower Extremity: Right Full Weight Bearing Left Lower Extremity: Left Full Weight Bearing Gait Training Does the Patient Walk?: Yes Distance: 80' Walk 10 feet (QC): 4 (SBA) Walk 50 ft with 2 Turns(QC): 4 (SBA) Gait Assistive Device: FWW Pt walks with scissoring gait pattern placing swing foot in front of stance foot. Exercises Seated Therapy Exercises: Ankle pumps, Hip flexion Seated Reps: 20 Treatments Pt peformed bed mobility, transfer training, skilled ambulation training, LE strengthening ex, and education this date. Assessment Current Status: Fair Progress Pt has decreasing pain during ambulation. Pt has difficulty remembering to don [place] brace prior to getting out of bed. PT Jail Goals Jail Goals PT Jail Goals Time Frame: Sep 30, 2019 Sit to Lying (QC): 6 Lying-Sitting on Side/Bed(QC): 6 Sit to Stand (QC): 6 Roll Left to Right (QC): 6 Chair/Lus-nz-Msfxr Xfer(QC): 6 Does the Patient Walk: Yes Distance: 250' Walk 10 feet (QC): 6 Walk 10ft-Uneven Surface(QC): 6 Walk 50ft with 2 Turns (QC): 6 Walk 150 ft (QC): 6 Gait Assistive Device: FWW # of Steps: 4 1 Step (curb) (QC): 5 4 Steps (QC): 5 12 Steps (QC): 88 PT Plan Problem List Problem List: Activity Tolerance, Functional Strength, Safety, Balance, Gait, Transfer, Bed Mobility, ROM Treatment/Plan Treatment Plan: Continue Plan of Care Treatment Plan: Bed Mobility, Education, Functional Activity Santos, Functional Strength, Gait, Safety, Therapeutic Exercise, Transfers Treatment Duration: Sep 30, 2019 Frequency: 11 times per week Estimated Hrs Per Day: .5 hour per day Patient and/or Family Agrees t: Yes Safety Risks/Education Patient Education: Gait Training, Transfer Techniques, Correct Positioning, Reviewed Don/Doff Brace, Safety Issues Teaching Recipient: Patient Teaching Methods: Demonstration, Discussion Response to Teaching: Return Demonstration, Reinforcement Needed Time/GCodes Time In: 810 Time Out: 827 Total Billed Treatment Time: 17 Total Billed Treatment 1 visit FA 17' MIKMARLO KUO PT Sep 20, 2019 08:59
[2019-09-20] MEDS: PREGABALIN 75 MG (LYRICA) CAP PO PRN ×2 (09:27→20:55)
--- NOTE | 2019-09-20 10:02 | Progress Note - Hospitalist ---
[facility] 09/20/19 1002: Subjective HPI/CC On Admission Date Seen by Provider: Sep 20, 2019 Time Seen by Provider: 09:57 Pt is a 58 y.o white female w/ PMH of HTN, osteoporosis, Tobacco use, and dyslip idemia here post-op for repair back surgery for management of IV ABX and pain control. Pt had an episode of fall 2/2 slipping on wet ground at work back in May 30, 2019 which resulted in burst fracture of T12 at which time diagnosis of L4-L5 herniated nucleus pulposus on the left side, Lumbar spinal stenosis (bony, central, foraminal) and Osteoporosis were established. Pt was not able to schedule surgery as she lost her insurance shortly after the fall. At this time, pt reports 10/10 pain and muscle spasms on her left side and throughout her left lower back; she describes the pain as being similar to a "Charley-horse". She reports she has been very nauseated 2/2 pain so she has not been able to each much besides water. She says the muscle relaxants and pain meds she has received so far have not been able to control her pain. She has a ordonez catheter in place and has had normal urine out put; has not had a BM today. Has also had abd distension. She denies vomiting, diarrhea, SOB, CP, palpitations, LE swelling, or headache today. Pt has a hx of LA[place], which she used to control with NSAIDs until recently; however she states has not been taking as much NSAIDs as recommended by her doctor for her osteoporosis (used to take ibuprofen at least TID). Pt is a long time smoker, 1 pack/day since she was 20 y.o. She has tried Chantix, but says she experienced "Bad, crazy dreams" while she was on it. Pt has hx of fibromyalgia for which she take pregabalin PRN. Subjective/Events-last exam Pt is doing better today, wearing her back brace participated in PT this AM, tolerated well Less pain than yesterday, her L hip spasms have resolved almost completely, she still does feel some tightness her BP have been in the 90s/50s after getting her BP meds Has passed gas but has not had a BM yet Notes she feels numbness in her perineal/anal region has a walker at home, says she needs home health, but otherwise feels ready to go home Review of Systems General: No Night Sweats, No Fatigue, No Malaise HEENT: No Head Aches, No Dysphasia Pulmonary: No Dyspnea, No Cough Cardiovascular: No: Chest Pain, Palpitations, Edema Gastrointestinal: Constipation; No: Nausea, Vomiting, Diarrhea Genitourinary: No Dysuria, No Incontinence, No Retention Musculoskeletal: back pain (s/p surgery), leg pain (L hip, mild); No: neck pain Neurological: Numbness (in perineal/anal region); No: Weakness Objective Exam Vital Signs Vital Signs Date Time Temp Pulse Resp B/P (MAP) Pulse Ox O2 Delivery O2 Flow Rate FiO2 09/20/19 03:15 36.6 102 16 95/54 (68) 95 Room Air 09/19/19 09:00 3.00 Capillary Refill : Less Than 3 Seconds General Appearance: No Apparent Distress, WD/WN HEENT: Normal ENT Inspection Neck: Full Range of Motion, Normal Inspection, Non Tender, Supple Respiratory: Chest Non Tender, Lungs Clear, Normal Breath Sounds, No Accessory Muscle Use, No Respiratory Distress Cardiovascular: Regular Rate, Rhythm, No Edema, No Gallop, No JVD, No Murmur, Normal Peripheral Pulses Gastrointestinal: Normal Bowel Sounds, No Organomegaly, No Pulsatile Mass, Non Tender, Soft Back: Normal Inspection (s/p back surgery), No CVA Tenderness, Vertebral Tenderness (s/p surgery) Extremity: Normal Capillary Refill, Normal Inspection, No Pedal Edema Neurologic/Psychiatric: Alert, Oriented x3, Normal Mood/Affect Skin: Normal Color, Warm/Dry Lymphatic: No Adenopathy Results/Procedures Lab Laboratory Tests 09/20/19 06:15 Patient resulted labs reviewed. Assessment/Plan Assessment and Plan Assess & Plan/Chief Complaint Post-Op Back surgery -Left lumbar 4-5 hemilaminectomy with thoracic 10-11, -Lumbar 1-2 post segmental instrumeneted fusion w. thoracic 11-12 facetectomy -Pain managed by Primary Attending; pain controlled at this time HTN -Controlled on Lisinopril-HTZ, continued -BP has been low, will monitor and adjust Meds accordingly Dyslipidemia -Controlled on Atorvastatin, continued Normocytic Anemia Post-Op -Monitor Hgb DVT prophylaxis when cleared by surgery Hx of Fibromyalgia -On pregabalin PRN Hx of Osteoporosis Overall assessment and plan: Pt's pain is under control and pt is able to move and tolerate PT; pt cleared by Primary for D/C this afternoon. Pt needs home health which will be managed by Primary. Discussed plan for d/c w/ pt; pt understands and agrees. Clinical Quality Measures DVT/VTE Risk/Contraindication: Risk Factor Score Per Nursin RFS Level Per Nursing on Admit: 2=Moderate LUCIANA ALEJO MD 09/20/19 1459: Supervisory-Addendum Brief Verification & Attestation Participated in pt care: history, MDM, physical Personally performed: exam, history, MDM, supervision of care Care discussed with: Medical Student Procedures: n/a Results interpretation: Verified all documentation Verification and Attestation of Medical Student E/M Service A medical student performed and documented this service in my presence. I reviewed and verified all information documented by the medical student and made modifications to such information, when appropriate. I personally performed the physical exam and medical decision making. Luciana Alejo, Sep 20, 2019,14:59 [facility] STUD Sep 20, 2019 10:02 LUCIANA ALEJO MD Sep 20, 2019 14:59
--- NOTE | 2019-09-20 11:58 | Occupational Ther Daily Note ---
OT Current Status-Daily Note Subjective Pt laying in bed at start of tx, agreeable to OT. Pt reported pain is "better", rating 5/10 in her back. Mental Status/Objective Attachments: Drains, IV ADL-Treatment Therapy Code Descriptions/Definitions Functional [place] Measure: 0=Not Assessed/NA 4=Minimal Assistance 1=Total Assistance 5=Supervision or Setup 2=Maximal Assistance 6=Modified [place] 3=Moderate Assistance 7=Complete IndependenceSCALE: Activities may be completed with or without assistive devices. 9-Kaytdbcxlj-mdnrewj completes the activity by him/herself with no assistance from a helper. 5-Set-up or Clean-up Assistance-helper sets up or cleans up; patient completes activity. [place] assists only prior to or following the activity. 4-Supervision or Touching Assistance-helper provides verbal cues and/or touching/steadying and/or contact guard assistance as patient completes activity. Assistance may be provided throughout the activity or intermittently. 3-Partial/Moderate Assistance-helper does LESS THAN HALF the effort. [place] lifts, holds or supports trunk or limbs, but provides less than half the effort. 2-Substantial/Maximal Assistance-helper does MORE THAN HALF the effort. [place] lifts or holds trunk or limbs and provides more than half the effort. 4-Hmwgcfqzq-wgxudo does ALL the effort. Patient does none of the effort to complete the activity. Or, the assistance of 2 or more helpers is required for the patient to complete the activity. If activity was not attempted, code reason: 7-Patient Refused. 9-Not Applicable-not attempted and the patient did not perform the activity before the current illness, exacerbation or injury. 10-Not Attempted due to Environmental Limitations-(lack of equipment, weather restraints, etc.). 88-Not Attempted due to Medical Conditions or Safety Concerns. Lower Body Dressing (QC): 6 Toileting Hygiene (QC): 6 Toilet Transfer (QC): 6 Other Treatment Pt laying in bed, able to don BLE socks using figure 4 method while sitting up in bed. Pt transferred supine to sit with min A, pt required OT's arm for support as she sat up. Pt able to stand with SBA and walk to bathroom with FWW with SBA. Pt completed toileting then washed hands and face at sink. Pt returned to bed, SBA to sit and transfer sit to supine. Post OT session, pt laying in bed, call light in reach and all needs met. Education OT Patient Education: Energy conservation, Modified ADL techniques, Progress toward Goal/Update tx plan, Purpose of tx/functional activities, Transfer techniques Teaching Recipient: Patient Teaching Methods: Demonstration Response to Teaching: Verbalize Understanding OT Short Term Goals Short Term Goals Time Frame: Sep 29, 2019 Bathing(FIM): 3 Upper Body Dressing(FIM): 3 Lower Body Dressing(FIM): 3 Toileting(FIM): 3 Toilet/Commode Transfer(FIM): 3 1=Demonstrate adherence to instructed precautions during ADL tasks. 2=Patient will verbalize/demonstrate understanding of assistive devices/modifications for ADL. 3=Patient will improve strength/tolerance for activity to enable patient to perform ADL's. OT Delivery Consultant Goals Delivery Consultant Goals Time Frame: Oct 06, 2019 Oral Hygiene (QC): 6 Shower/Bathe Self (QC): 5 Upper Body Dressing (QC): 6 Lower Body Dressing (QC): 6 On/Off Footwear (QC): 6 Toileting Hygiene (QC): 6 Toilet/Commode Transfer (QC): 6 Additional Goals: 1-Demonstrate ADL Tasks, 2-Verbalize Understanding, 3- ImproveStrength/Santos 1=Demonstrate adherence to instructed precautions during ADL tasks. 2=Patient will verbalize/demonstrate understanding of assistive devices/modifications for ADL. 3=Patient will improve strength/tolerance for activity to enable patient to perform ADL's. OT Education/Plan Problem List/Assessment Assessment: Decreased Activ Tolerance, Decreased UE Strength, Impaired Self- Care Skills Pt would benefit from skilled OT services in order to increase independence in ADLs and functional activities with education on AE and ADL modifications. Discharge Recommendations Plan/Recommendations: Continue POC Treatment Plan/Plan of Care Treatment,Training & Education: Yes Patient would benefit from OT for education, treatment and training to promote independence in ADL's, mobility, safety and/or upper extremity function for ADL's. Plan of Care: ADL Retraining, Functional Mobility, UE Funct Exercise/Act Treatment Duration: Oct 06, 2019 Frequency: 5 times per week Estimated Hrs Per Day: .25 hour per day Agreement: Yes Rehab Potential: Fair Time/GCodes Start Time: 11:25 Stop Time: 11:37 Total Time Billed (hr/min): 12 Billed Treatment Time 1, ADL TORCHIA,DENIZ OT Sep 20, 2019 11:58
[2019-09-20 12:00] VITALS: BP 81/44
--- NOTE | 2019-09-20 15:46 | Physical Therapy Daily Note ---
PT Daily Note-Current Subjective Pt sitting EOB leaning to the R with the head propped up pre-tx. Pt agrees to PT this afternoon. Pt daughter and granddaughter present for TX. pt reports decreased pain this afternoon in the hip. Appearance Pt sitting EOB in a more upright position post-tx. Pt with call light, room phone, tray table in reach with all needs met at this time. Mental Status Patient Orientation: Person, Place, Time, Situation Attachments: Drains, IV back brace Transfers SCALE: Activities may be completed with or without assistive devices. 5-Caepyibgkg-puurruo completes the activity by him/herself with no assistance from a helper. 5-Set-up or Clean-up Assistance-helper sets up or cleans up; patient completes activity. [place] assists only prior to or following the activity. 4-Supervision or Touching Assistance-helper provides verbal cues and/or touching/steadying and/or contact guard assistance as patient completes activity. Assistance may be provided throughout the activity or intermittently. 3-Partial/Moderate Assistance-helper does LESS THAN HALF the effort. [place] lifts, holds or supports trunk or limbs, but provides less than half the effort. 2-Substantial/Maximal Assistance-helper does MORE THAN HALF the effort. [place] lifts or holds trunk or limbs and provides more than half the effort. 8-Rorpgvizs-gxbiaj does ALL the effort. Patient does none of the effort to complete the activity. Or, the assistance of 2 or more helpers is required for the patient to complete the activity. If activity was not attempted, code reason: 7-Patient Refused. 9-Not Applicable-not attempted and the patient did not perform the activity before the current illness, exacerbation or injury. 10-Not Attempted due to Environmental Limitations-(lack of equipment, weather restraints, etc.). 88-Not Attempted due to Medical Conditions or Safety Concerns. Sit to Stand (QC): 4 (SBA) Pt continues to be slightly impulsive and stands without hands and will let go of FWW during transfer. Weight Bearing Right Lower Extremity: Right Full Weight Bearing Left Lower Extremity: Left Full Weight Bearing Gait Training Distance: 200' Walk 10 feet (QC): 4 (CGA) Walk 50 ft with 2 Turns(QC): 4 (CGA) Walk 150 ft (QC): 4 (CGA) Gait Assistive Device: FWW Pt continues to ambulate with NBOS but has no LOB this date. Pt reports her back feels better as she continues to walk. Wheelchair Training Does the Pt Use a Wheelchair?: No Exercises Seated Therapy Exercises: Ankle pumps, Long arc quads, Hip flexion, Kicking activity Seated Reps: 20 Treatments Pt performed sit to stands, skilled ambulation training, LE strengthening exercises, and education this session. Assessment Current Status: Good Progress Pt geraldine increased ambulation distance this session. Pt had increased fatigue and stiffness in B/L hips following ambulation this session. PT Hay Sorter Goals Hay Sorter Goals PT Hay Sorter Goals Time Frame: Sep 30, 2019 Sit to Lying (QC): 6 Lying-Sitting on Side/Bed(QC): 6 Sit to Stand (QC): 6 Roll Left to Right (QC): 6 Chair/Vcx-wg-Ijmwx Xfer(QC): 6 Does the Patient Walk: Yes Distance: 250' Walk 10 feet (QC): 6 Walk 10ft-Uneven Surface(QC): 6 Walk 50ft with 2 Turns (QC): 6 Walk 150 ft (QC): 6 Gait Assistive Device: FWW # of Steps: 4 1 Step (curb) (QC): 5 4 Steps (QC): 5 12 Steps (QC): 88 PT Plan Problem List Problem List: Activity Tolerance, Functional Strength, Safety, Balance, Gait, Transfer, Bed Mobility Treatment/Plan Treatment Plan: Continue Plan of Care Treatment Plan: Bed Mobility, Education, Functional Activity Santos, Functional Strength, Gait, Safety, Therapeutic Exercise, Transfers Treatment Duration: Sep 30, 2019 Frequency: 11 times per week Estimated Hrs Per Day: .5 hour per day Patient and/or Family Agrees t: Yes Safety Risks/Education Patient Education: Gait Training, Transfer Techniques, Correct Positioning, Safety Issues Teaching Recipient: Patient Teaching Methods: Demonstration, Discussion Response to Teaching: Return Demonstration, Reinforcement Needed Time/GCodes Time In: 1506 Time Out: 1520 Total Billed Treatment Time: 14 Total Billed Treatment 1 visit GT 14' MARLO BORJA PT Sep 20, 2019 15:46
--- NOTE | 2019-09-20 15:47 | NUR ---
RD ASSESSMENT PMHx: stenosis; HTN; osteoporosis; dyslipidemia; hypercholesterolemia; GERD PT INTERACTION: Pt was awake and pleasant during nutrition assessment. Pt states current appetite is good, and has been for the past few weeks. Pt states following a regular diet at home, "usually soup and sandwich." Pt states no current issues with chewing/swallowing food at this time. Pt states some recent episodes of nausea and vomiting. Note pt currently on regimen of zofran, phenergan. Pt states some issues with constipation with no BM recorded, per chart review. Note pt currently on bowel regimen of colace, bisacodyl. Pt states recent 15# wt loss x3mon. Note unable to determine recent wt hx, per chart review. ABNORMAL NUTRITION-RELATED LAB VALUES: glu 114 (H); Ca 8.3 (L); Pro 5.2 (L) Est. kcal needs: 1391-6592 kcal (20-25 kcal/kg) Est. Pro needs: 63-78 g Pro (0.8-1.0 g Pro/kg) PES STATEMENT: Inadequate oral intake (NI-2.1) related to nausea | vomiting as evidenced by pt interview INTERVENTION: Continue with current diet order of Regular diet. Encouraged pt to eat when able. MONITOR/EVALUATE: PO Intake; Plan of Care; Hydration Status; Weight Status; Lab Values Fabrizio Fontanez, MS, RD, LD Ext. 133
[2019-09-20 16:00] VITALS: BP 87/51
--- NOTE | 2019-09-20 16:19 | NUR ---
Spoke with the patient this day in regards to discharge planning. She did not feel that she would discharge this day but possibly the next day. She will have HHC and does not have a preference of agency, though, she does live in [place]. Patient's daughter will transport home at discharge. Her daughter will only be in town until Wednesday and the patient's works out of town. Will assist in arranging HHC at time of discharge.
[2019-09-20] MEDS: CYCLOBENZAPRINE 10 MG (FLEXERIL) TAB PO PRN (16:24)
[2019-09-20 20:00] VITALS: BP 88/50
[2019-09-21 00:26] VITALS: BP 93/60
[2019-09-21 04:47] VITALS: BP 108/69
[2019-09-21] MEDS: oxyCODONE/APAP 5/325MG (PERCOCET 5) TABLET PO PRN ×2 (06:06→10:38)
[2019-09-21] MEDS: MULTIVIT W/MINERALS TAB (THERAGRAN M) PO SCH (06:06)
--- NOTE | 2019-09-21 07:40 | D/C HH Face to Face Order ---
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 Discharge Diet for Home: No Restrictions Goals for Patient: ambulate with brace several times a day Patient Data-Allergies,Ht & Wt Patient Allergies: Coded Allergies: No Known Drug Allergies (Unverified , 09/11/19) Home Health Need/Face to Face Date of Face to Face: Sep 20, 2019 Clinical Findings: Generalized weakness and fatigue, Instability, Unsteady gait I have seen Pt ccqu-ca-vneo: Yes Discharged To: Home Diagnosis/Conditions: T12 fracture s/p thoracolmbar fusion lumbar stenosis Patient is Homebound due to: Aretha fall risk due to instabilty, Muscle weakness, Pain w/ambulation Homebound Status Due to the above stated illness, injury or surgical procedure (medical condition or diagnosis) and associated clinical findings, the patient is homebound because of his/her inability to leave home except with aid of a supportive device and/or person AND leaving the home requires a considerable and taxing effort or is medically contraindicated. Pt req the following assistanc: Aid of another person, Walker Home Health Nursing Orders Home Health Services Order: Nursing Services, Physical Therapy-Evaluate & Treat Home Health Infusion Therapy Line Start Date: Sep 18, 2019 Therapy Orders Therapy Orders: Physical Therapy, PT to assess for OT Physical therapy evaluated and treat for gait taining nursing to change bandages as needed q 48 hours Certify Stmt I certify that this patient is under my care and that I, a nurse practitioner or a physician; a res habilitation assistant working with me, had a face to face encounter that - meets the physician face to face encounter requirements with this patient as dated. EMMY HEATH Sep 21, 2019 07:38
[2019-09-21 07:58] VITALS: BP 91/60
[2019-09-21] MEDS: DOCUSATE SODIUM 100 MG (COLACE) CAP PO SCH (08:44)
[2019-09-21] MEDS: FAMOTIDINE 20 MG (PEPCID) TABLET PO SCH (08:44)
--- NOTE | 2019-09-21 09:45 | Occupational Ther Daily Note ---
OT Current Status-Daily Note Subjective Pt laying in bed at start of session, agreeable to OT tx focusing on ADLs. Pt did not report any pain this tx. Pt reported she would hopefully get to go home this AM. Mental Status/Objective Attachments: IV ADL-Treatment Therapy Code Descriptions/Definitions Functional [place] Measure: 0=Not Assessed/NA 4=Minimal Assistance 1=Total Assistance 5=Supervision or Setup 2=Maximal Assistance 6=Modified [place] 3=Moderate Assistance 7=Complete IndependenceSCALE: Activities may be completed with or without assistive devices. 8-Hjuwengipz-odwtdma completes the activity by him/herself with no assistance from a helper. 5-Set-up or Clean-up Assistance-helper sets up or cleans up; patient completes activity. [place] assists only prior to or following the activity. 4-Supervision or Touching Assistance-helper provides verbal cues and/or touching/steadying and/or contact guard assistance as patient completes activity. Assistance may be provided throughout the activity or intermittently. 3-Partial/Moderate Assistance-helper does LESS THAN HALF the effort. Bryce lifts, holds or supports trunk or limbs, but provides less than half the effort. 2-Substantial/Maximal Assistance-helper does MORE THAN HALF the effort. Bryce lifts or holds trunk or limbs and provides more than half the effort. 3-Doiiwkvxq-fduofs does ALL the effort. Patient does none of the effort to complete the activity. Or, the assistance of 2 or more helpers is required for the patient to complete the activity. If activity was not attempted, code reason: 7-Patient Refused. 9-Not Applicable-not attempted and the patient did not perform the activity before the current illness, exacerbation or injury. 10-Not Attempted due to Environmental Limitations-(lack of equipment, weather restraints, etc.). 88-Not Attempted due to Medical Conditions or Safety Concerns. Upper Body Dressing (QC): 3 (Pt donned bra, tree puller shirt, and back brace. Required assistance with bra secondary to twisting as she pulled it on overhead. Pt able to put on shirt and brace without assistance.) Lower Body Dressing (QC): 5 (Pt able to don pants with set up only.) Other Treatment Pt laying in bed at start of session. Transferred supine to sit without assistance from OT. Pt completed dressing at EOB, standing at FWW when needed for management of pants. SBA sit to stand from EOB. After dressing, pt transferred sit to supine without assistance. Post OT session, pt laying in bed, call light in reach and all needs met. Education OT Patient Education: Energy conservation, Modified ADL techniques, Progress toward Goal/Update tx plan, Purpose of tx/functional activities Teaching Recipient: Patient Teaching Methods: Demonstration Response to Teaching: Verbalize Understanding OT Short Term Goals Short Term Goals Time Frame: Sep 29, 2019 Bathing(FIM): 3 Upper Body Dressing(FIM): 3 Lower Body Dressing(FIM): 3 Toileting(FIM): 3 Toilet/Commode Transfer(FIM): 3 1=Demonstrate adherence to instructed precautions during ADL tasks. 2=Patient will verbalize/demonstrate understanding of assistive devices/modifications for ADL. 3=Patient will improve strength/tolerance for activity to enable patient to perform ADL's. OT Build Master Goals Usp Goals Time Frame: Oct 06, 2019 Oral Hygiene (QC): 6 Shower/Bathe Self (QC): 5 Upper Body Dressing (QC): 6 Lower Body Dressing (QC): 6 On/Off Footwear (QC): 6 Toileting Hygiene (QC): 6 Toilet/Commode Transfer (QC): 6 Additional Goals: 1-Demonstrate ADL Tasks, 2-Verbalize Understanding, 3- ImproveStrength/Santos 1=Demonstrate adherence to instructed precautions during ADL tasks. 2=Patient will verbalize/demonstrate understanding of assistive devices/modifications for ADL. 3=Patient will improve strength/tolerance for activity to enable patient to perform ADL's. OT Education/Plan Problem List/Assessment Assessment: Decreased Activ Tolerance, Decreased UE Strength, Impaired Self- Care Skills Pt would benefit from skilled OT services in order to increase independence in ADLs and functional activities with education on AE and ADL modifications. Discharge Recommendations Plan/Recommendations: Continue POC Therapy Discharge Recommendati: Intermittent Supervision Treatment Plan/Plan of Care Treatment,Training & Education: Yes Patient would benefit from OT for education, treatment and training to promote independence in ADL's, mobility, safety and/or upper extremity function for ADL's. Plan of Care: ADL Retraining, Functional Mobility, UE Funct Exercise/Act Treatment Duration: Oct 06, 2019 Frequency: 5 times per week Estimated Hrs Per Day: .25 hour per day Agreement: Yes Rehab Potential: Fair Time/GCodes Start Time: 09:16 Stop Time: 09:24 Total Time Billed (hr/min): 8 Billed Treatment Time 1, ADL x8min DENIZ FINNEY OT Sep 21, 2019 09:45
--- NOTE | 2019-09-21 10:18 | NUR ---
CM/SS spoke with the patient for discharge planning. She will have [facility], her preference was for [facility]. Discharge information sent to [facility], patient's insurance is in network with them. Patient will be transported by her daughter. Patient did not have any other discharge needs.
[2019-09-21] MEDS: CYCLOBENZAPRINE 10 MG (FLEXERIL) TAB PO PRN (10:38)
== END 2019-09-21 12:20 | disposition home health service (06) | DRG 460 ==
LOC: 4TH 06:11 → SURG 06:12 → EDSTATUS 07:30 → 4TH 12:40
PROVIDERS: ADMIT Orthopaedic Surgery; ATTEND Orthopaedic Surgery
PROC: 0RGA071 Fusion of Thoracolumbar Vertebral Joint with Autologous Tissue Substitute, Posterior Approach, Posterior Column, Open Approach (ICD-10-PCS; 2019-09-18)
PROC: 0SG0071 Fusion of Lumbar Vertebral Joint with Autologous Tissue Substitute, Posterior Approach, Posterior Column, Open Approach (ICD-10-PCS; 2019-09-18)
PROC: 0SB20ZZ Excision of Lumbar Vertebral Disc, Open Approach (ICD-10-PCS; 2019-09-18)
PROC: 01N80ZZ Release Thoracic Nerve, Open Approach (ICD-10-PCS; 2019-09-18)
PROC: 00NX0ZZ Release Thoracic Spinal Cord, Open Approach (ICD-10-PCS; 2019-09-18)
PROC: 00NY0ZZ Release Lumbar Spinal Cord, Open Approach (ICD-10-PCS; 2019-09-18)
PROC: 01NB0ZZ Release Lumbar Nerve, Open Approach (ICD-10-PCS; 2019-09-18)
PROC: 0RG7071 Fusion of 2 to 7 Thoracic Vertebral Joints with Autologous Tissue Substitute, Posterior Approach, Posterior Column, Open Approach (ICD-10-PCS; principal; 2019-09-18 08:11)
DX: M51.16 Intervertebral disc disorders with radiculopathy, lumbar region (principal); M48.062 Spinal stenosis, lumbar region with neurogenic claudication; S22.081A Stable burst fracture of T11-T12 vertebra, initial encounter for closed fracture; M81.0 Age-related osteoporosis without current pathological fracture; D64.9 Anemia, unspecified; I10 Essential (primary) hypertension; F17.210 Nicotine dependence, cigarettes, uncomplicated; E78.5 Hyperlipidemia, unspecified; G62.9 Polyneuropathy, unspecified; K21.9 Gastro-esophageal reflux disease without esophagitis; M79.7 Fibromyalgia; W01.0XXA Fall on same level from slipping, tripping and stumbling without subsequent striking against object, initial encounter; Y99.0 Civilian activity done for income or pay
CPT/HCPCS: 36415; 72100; 80053; 85014; 85018; 85027; 86850; 86900; 86901; 94664; 94760